=== PATIENT | male | born 1995 | race African-American/Black ===

== ENCOUNTER 2019-01-16 13:13 | Emergency (ER) | payer SELFPAY ==
[~2019-01-16] VITALS: Ht 188 cm; Wt 108.9 kg
[2019-01-16] MEDS ORDERED: SULFACETAMIDE S15 ML OD (14:34)
[2019-01-16] MEDS ORDERED: AUGMENTIN 875-1 EACH PO (14:35)
[2019-01-16 14:48] VITALS: BP 118/80
== END 2019-01-16 14:50 | disposition home or self-care (01) ==
LOC: FSED 13:13
DX: R05 Cough (principal); R50.9 Fever, unspecified; H10.021 Other mucopurulent conjunctivitis, right eye; J02.9 Acute pharyngitis, unspecified
CPT/HCPCS: 87400; 99282

== ENCOUNTER 2019-02-08 20:08 | Emergency (ER) | payer SELFPAY ==
[~2019-02-08] VITALS: Ht 188 cm; Wt 108.9 kg
[~2019-02-08 20:08] MED LIST: AUGMENTIN 875-1 EACH PO; SULFACETAMIDE S15 ML OD
--- OUTSIDE RECORDS SUMMARY | 2019-02-08 20:11 | XMS REPORT ---
Author Author [facility] Address Unknown Phone Unavailable Care Team Providers Care Photogrammetrist Name Role Phone Unavailable Unavailable Problems This patient has no known problems. Allergies, Adverse Reactions, Alerts This patient has no known allergies or adverse reactions. Medications This patient has no known medications.
== END 2019-02-08 21:38 | disposition left against medical advice (07) ==
LOC: FSED 20:08
DX: R30.0 Dysuria (principal); N30.91 Cystitis, unspecified with hematuria